=== PATIENT | female | born 1970 | race Caucasian/White ===

== ENCOUNTER 2016-12-21 06:08 | Emergency (ER) | payer BC ==
[2016-12-21 06:14] VITALS: BMI 29.2
[2016-12-21] MEDS ORDERED: ASPIRIN ONE (06:19)
[2016-12-21] MEDS ORDERED: NITROSTAT SL PRN (06:19)
[2016-12-21] MEDS ORDERED: ASPIRIN PO ONE (06:19)
[2016-12-21 06:42] VITALS: BP 169/90
--- NOTE | 2016-12-21 06:47 | RAD ---
HISTORY: Chest pain Study: Chest AP portable Comparison: None Findings: The trachea is midline. The cardiac silhouette is enlarged. No congestive heart failure is noted.. The lungs are clear without focal infiltrate or effusion. The bony thorax is unremarkable. IMPRESSION: 1. Cardiomegaly without congestive heart failure 2. Lungs clear Reported By:
--- NOTE | 2016-12-21 06:48 | DR.GENAD ---
HPI - PCP Primary Care Physician: ERIC - Complaint/Symptoms Chief Complaint Doctors Comments: I agree with statement. Denies a history of cardiac disease. Chief Complaint:: "I JUST FEEL LIKE I HAVE PRESSURE ON MY CHEST, LIKE I MAY BE HAVING A PANIC ATTACK. I HAVE BEEN COUGHING A LOT TOO. I TOOK A BLOOD PRESSURE PILL A LITTLE WHILE AGO. IT WOKE ME UP AROUND 0400 THIS MORNING." Self Treatment fo Chief Complaint: LISINOPRIL. ALLERGY MEDS(CHILDRENS) - Source History Provided: Patient - Mode of Arrival Mode of Arrival: Ambulatory - Timing Onset of Chief Complaint: 12/21/16 PMH - PMH Past Medical History: Yes Past Medical History: Hypertension Past Surgical History: Yes Surgical History: - Family History History of Family Medical Conditions: No - Social History Type of Tobacco Use: Cigarettes Lives Where: Home - infectious screening Have you traveled outside the country in the last 6 months?: No Isolation: Standard ROS - Review of Systems Eyes: No Symptoms Reported ENTM: No Symptoms Reported Respiratoy: No Symptoms Reported Cardiovascular: No Symptoms Reported Gastrointestinal/Abdominal: No Symptoms Reported Genitourinary: No Symptoms Reported Neurological: No Symptoms Reported Musculoskeletal: No Symptoms Reported Integumentary: No Symptoms Reported Hematologic/Lymphatic: No Symptoms Reported Endocrine: No Symptoms Reported Psychiatric: No Symptoms Reported All Other Systems: Reviewed and Negative PE - Vital Signs Vitals: Pulse Rate [Apical] 80 Pulse Rate 102 Respiratory Rate 18 Blood Pressure [Right Arm] 169/90 Blood Pressure 206/116 O2 Sat by Pulse Oximetry 96 - General Limitations: No Limitations General Appearance: Alert, In No Apparent Distress, Appears Intoxicated - Head Head Exam: Normal Inspection, Atraumatic - Eyes Eye exam: Normal Appearance, PERRL, EOMI - ENT ENT Exam: Normal Exam External Ear Exam: Normal External Inspection TM/Canal Exam: Bilateral Normal Nose Exam: Normal Nose Exam Mouth Exam: Normal Inspection Throat Exam: Normal Inspection - Neck Neck Exam: Normal Inspection, Full ROM - Chest Chest Inspection: Normal Inspection - Respiratory Respiratory Exam: Normal Lung Sounds Bilat Respiratory Exam: Bilateral Clear to Auscultation - Cardiovascular Cardiovascular Exam: Regular Rate - Abdominal Exam Abdominal Exam: Normal Inspection Abdominal Tenderness: negative: RUQ, RLQ, LUQ, LLQ, Epigastrium, Suprapubic, Diffuse, Mild, Moderate, Severe, Other - Extremities Extremities Exam: Normal Inspection, Full ROM - Back Back Exam: Normal Inspection, Full ROM - Neurologic Neurological Exam: Alert, Oriented X3, CN II-XII Intact - Psychiatric Psychiatric Exam: Normal Affect - Skin Skin Exam: Warm, Dry, Intact Course - Reevaluation 1st: Improved ROR - Labs Reviewed Result Diagrams: 12/21/16 06:30 12/21/16 06:30 Laboratory: WBC 12.9 X10^3/uL (3.6-10.0) H 12/21/16 06:30 RBC 4.94 X10^6/uL (3.5-5.4) 12/21/16 06:30 Hgb 12.4 g/dL (12.0-16.0) 12/21/16 06:30 Hct 38.0 % (36.0-47.0) 12/21/16 06:30 MCV 76.8 fL (80.0-100.0) L 12/21/16 06:30 MCH 25.0 pg (27.0-34.0) L 12/21/16 06:30 MCHC 32.6 g/dL (33.0-35.0) L 12/21/16 06:30 RDW 17.1 % (11.6-16.5) H 12/21/16 06:30 Plt Count 200 X10^3/uL (150.0-450.0) 12/21/16 06:30 Plt Count Comment Adequate (ADEQUATE) 12/21/16 06:30 MPV 10.4 fL (7.4-11.0) 12/21/16 06:30 Neut % 73.0 % (42.0-75.0) 12/21/16 06:30 Lymph % 19.8 % (21.0-51.0) L 12/21/16 06:30 [place] % 5.2 % (0.0-13.0) 12/21/16 06:30 Eos % 1.5 % (0.9-2.9) 12/21/16 06:30 Baso % 0.5 % (0.2-1.0) 12/21/16 06:30 Neut # 9.4 x10^3/uL (2.2-4.8) H 12/21/16 06:30 Lymph # 2.5 X10^3/uL (1.3-2.9) 12/21/16 06:30 [place] # 0.7 x10^3/uL (0.3-0.8) 12/21/16 06:30 Eos # 0.2 x10^3/uL (0.0-0.2) 12/21/16 06:30 Baso # 0.1 X10^3/uL (0.0-0.1) 12/21/16 06:30 Absolute Nucleated RBC 0.0 /100WBC 12/21/16 06:30 Plt Morphology Comment Normal (NORMAL) 12/21/16 06:30 RBC Morphology Normal (NORMAL) 12/21/16 06:30 INR Target Range - 12/21/16 06:30 INR 0.92 (0.8-1.3) 12/21/16 06:30 Sodium 137 mmol/L (136-145) 12/21/16 06:30 Corrected Sodium TNP 12/21/16 06:30 Potassium 3.6 mmol/L (3.5-5.1) 12/21/16 06:30 Chloride 106 mmol/L (98-107) 12/21/16 06:30 Carbon Dioxide 22.8 mmol/L (21-32) 12/21/16 06:30 BUN 11 mg/dL (7-18) 12/21/16 06:30 Creatinine 1.01 mg/dL (0.55-1.02) 12/21/16 06:30 Est GFR (MDRD) Af Amer > 60 (>60) 12/21/16 06:30 Est GFR (MDRD) Non-Af > 60 (>60) 12/21/16 06:30 Glucose 98 mg/dL (65-99) 12/21/16 06:30 Calcium 8.3 mg/dL (8.5-10.1) L 12/21/16 06:30 Corrected Calcium 9.0 mg/dL (8.5-10.1) 12/21/16 06:30 Phosphorus 2.8 mg/dL (2.6-4.7) 12/21/16 06:30 Magnesium 1.7 mg/dL (1.7-2.9) 12/21/16 06:30 Total Bilirubin 0.30 mg/dL (0.2-1.0) 12/21/16 06:30 AST 16 Units/L (15-37) 12/21/16 06:30 ALT 16 Units/L (12-78) 12/21/16 06:30 Alkaline Phosphatase 79 Units/L (46-116) 12/21/16 06:30 Creatine Kinase 112 Units/L (26-192) 12/21/16 06:30 CK-MB (CK-2) 1.3 ng/mL (0-4.0) 12/21/16 06:30 CK/CKMB % Calc 1.2 % (<4) 12/21/16 06:30 Troponin I 0.02 ng/mL (0-1.5) 12/21/16 06:30 Total Protein 7.5 g/dL (6.4-8.2) 12/21/16 06:30 Albumin 3.1 g/dL (3.4-5.0) L 12/21/16 06:30 Globulin 4.4 g/dL (2.5-4.5) 12/21/16 06:30 Albumin/Globulin Ratio 0.7 Ratio (1.1-2.1) L 12/21/16 06:30 - XRAY XRAY Interpreted by: Radiologist (Chest: cardiomegaly without CHF, Lungs clear) - Diagnosis Discharge Problem: Anxiety - Discharge Plan Condition: Stable - Follow ups/Referrals Follow ups/Referrals: Sandra REYES [Primary Care Provider] - 3 days - Instructions
[2016-12-21 06:53] LABS: BASOPHILS # (AUTO) 0.1 X10^3/uL (0.0-0.1); BASOPHILS % (AUTO) 0.5 % (0.2-1.0); EOSINOPHILS # (AUTO) 0.2 x10^3/uL (0.0-0.2); EOSINOPHILS % (AUTO) 1.5 % (0.9-2.9); HEMOGLOBIN 12.4 g/dL (12.0-16.0); LYMPHOCYTES # (AUTO) 2.5 X10^3/uL (1.3-2.9); LYMPHOCYTES % (AUTO) 19.8 % (21.0-51.0); MEAN CORPUSCULAR HGB CONC 32.6 g/dL (33.0-35.0); MEAN CORPUSCULAR VOLUME 76.8 fL (80.0-100.0); MEAN PLATELET VOLUME 10.4 fL (7.4-11.0); MONOCYTES # (AUTO) 0.7 x10^3/uL (0.3-0.8); MONOCYTES % (AUTO) 5.2 % (0.0-13.0); NEUTROPHILS # (AUTO) 9.4 x10^3/uL (2.2-4.8); PLATELET COUNT 200 X10^3/uL (150.0-450.0); RED BLOOD COUNT 4.94 X10^6/uL (3.5-5.4); RED CELL DISTRIBUTION WIDTH 17.1 % (11.6-16.5); WHITE BLOOD COUNT 12.9 X10^3/uL (3.6-10.0)
[2016-12-21 07:19] LABS: PLATELET MORPHOLOGY COMMENT NORMAL (NORMAL)
[2016-12-21 07:20] LABS: ALANINE AMINOTRANSFERASE 16 Units/L (12-78); ALBUMIN 3.1 g/dL (3.4-5.0); ALKALINE PHOSPHATASE 79 Units/L (46-116); ASPARTATE AMINO TRANSFERASE 16 Units/L (15-37); BLOOD UREA NITROGEN 11 mg/dL (7-18); CALCIUM 8.3 mg/dL (8.5-10.1); CARBON DIOXIDE 22.8 mmol/L (21-32); CHLORIDE 106 mmol/L (98-107); CKMB % 1.2 % (<4); CREATINE KINASE 112 Units/L (26-192); CREATINE KINASE MB 1.3 ng/mL (0-4.0); CREATININE 1.01 mg/dL (0.55-1.02); MAGNESIUM 1.7 mg/dL (1.7-2.9); PHOSPHORUS 2.8 mg/dL (2.6-4.7); SODIUM 137 mmol/L (136-145); TOTAL PROTEIN 7.5 g/dL (6.4-8.2); TROPONIN I 0.02 ng/mL (0-1.5); eGFR BLACK RACES > 60 (>60); eGFR NON BLACK RACES > 60 (>60)
== END 2016-12-21 08:38 | disposition home or self-care (01) ==
LOC: ER 06:08
DX: F41.8 Other specified anxiety disorders (principal)
CPT/HCPCS: 36415; 71010; 80053; 82550; 82553; 83735; 84100; 84484; 85025; 85610; 93005; 93010; 96365; 99283; A4222

== ENCOUNTER 2017-02-11 12:40 | Emergency (ER) | payer BC ==
[2017-02-11 12:51] VITALS: BMI 28.2
[2017-02-11] MEDS ORDERED: CATAPRES TAB 0.2 MG PO ONE (13:18)
[2017-02-11] MEDS ORDERED: ZESTRIL TAB 10 MG PO ONE (13:19)
[2017-02-11] MEDS ORDERED: CATAPRES TAB 0.2 MG ONE (13:21)
--- NOTE | 2017-02-11 13:21 | DR.GENAD ---
HPI - PCP Primary Care Physician: Vanesa - HPI Comment HPI Comment: Possible elevated BP - Complaint/Symptoms Chief Complaint:: "I ran out of my blood pressure medicine Sunday. I was trying to make it till Sunday but I just feel like I'm having a panic attack. I know it has to be really high." - Nurses notes reviewed Nurses Notes Review: Yes - Source History Provided: Patient - Mode of Arrival Mode of Arrival: Ambulatory - Timing Onset of Chief Complaint: 02/09/17 - Modifying Factors Worsens:: none Improves:: none - Associated Signs and Symptoms Associated Signs and Symptoms: none PMH - PMH Past Medical History: Yes Past Medical History: Hypertension Past Surgical History: Yes Surgical History: - Family History History of Family Medical Conditions: Yes Family Medical History: Diabetes Mellitus, Hypertension - Social History Does patient currently use any type of tobacco product: Yes Have you used tobacco products in the last 12 months: Yes Type of Tobacco Use: Cigarettes Does any household member use tobacco: No Alcohol Use: Occasionally Do you use any recreational Drugs:: No Lives With: Family Lives Where: Home - infectious screening In the last 2 months have you had wt loss of >10#?: NO Have you had fever, night sweats or hemotysis?: No Have you traveled outside the country in the last 6 months?: No Isolation: Standard ROS - Review of Systems Constitutional: No Symptoms Reported Eyes: No Symptoms Reported ENTM: No Symptoms Reported Respiratoy: No Symptoms Reported Cardiovascular: No Symptoms Reported Gastrointestinal/Abdominal: No Symptoms Reported Genitourinary: No Symptoms Reported Neurological: No Symptoms Reported Musculoskeletal: No Symptoms Reported Integumentary: No Symptoms Reported Hematologic/Lymphatic: No Symptoms Reported Endocrine: No Symptoms Reported Psychiatric: No Symptoms Reported All Other Systems: Reviewed and Negative PE - Vital Signs Vitals: Temperature 98.5 F Pulse Rate 109 Respiratory Rate 18 Blood Pressure [Left Arm] 160/83 Blood Pressure [Right Arm] 169/90 Blood Pressure 216/125 O2 Sat by Pulse Oximetry 98 - General Limitations: No Limitations General Appearance: Alert, In No Apparent Distress - Head Head Exam: Normal Inspection - Eyes Eye exam: Normal Appearance - ENT ENT Exam: Normal Exam - Neck Neck Exam: Normal Inspection - Chest Chest Inspection: Normal Inspection - Respiratory Respiratory Exam: Normal Lung Sounds Bilat - Cardiovascular Cardiovascular Exam: Regular Rate, Normal Rhythm - Abdominal Exam Abdominal Exam: Normal Inspection, Normal Bowel Sounds, Soft - Extremities Extremities Exam: Normal Inspection, Full ROM - Back Back Exam: Normal Inspection - Neurologic Neurological Exam: Alert, Oriented X3, CN II-XII Intact - Psychiatric Psychiatric Exam: Normal Affect, Normal Mood - Skin Skin Exam: Warm, Dry, Intact, Normal Color Course - Reevaluation 1st: Improved (Repeat BP was 160/80) - Education/Counseling Education/Counseling: Patient, Family Educated On: Treatment, Diagnosis, Needs for Follow Up - Diagnosis Discharge Problem: HTN (hypertension) - Discharge Plan Disposition: 01 HOME, SELF-CARE - Follow ups/Referrals Follow ups/Referrals: Sandra REYES [Primary Care Provider] - 3 days - Instructions
[2017-02-11 14:36] VITALS: BP 128/68
== END 2017-02-11 14:43 | disposition home or self-care (01) ==
LOC: ER 12:49
DX: I10 Essential (primary) hypertension (principal)
CPT/HCPCS: 99282

== ENCOUNTER 2020-10-04 08:35 | Observation (INO) ==
[2020-10-04 08:57] VITALS: BMI 29.7
[2020-10-04] MEDS ORDERED: NITROSTAT SL PRN (09:31)
--- NOTE | 2020-10-04 09:35 | DR.GENAD ---
HPI Time Seen Time Seen by Provider: 10/04/20 09:22 PCP Primary Care Physician: SHAKIRA CLAIRE IN [place] Complaint/Symptoms Chief Complaint Doctors Comments: c/o anxiety and elev BP over the weekend. Chief Complaint:: HAVING PANIC ATTACKS AND FEELS LIKE HER BP IN GOING UP. HAS BEEN A BAD WEEKEND AND FEELS LIKE SOMETHING IS GOING TO HAPPEN. DOES EXPERIENCE CHEST TIGHTNESS WHEN PANIC SETS IN Self Treatment fo Chief Complaint: TAKES XANAX AT NIGHT ORDERED BY , COVID-19 Coronavirus risk:travel/contact w/high risk person: No Has patient experienced Coronavirus symptoms: No Nurses notes reviewed Nurses Notes Review: Yes Source History Provided: Patient Mode of Arrival Mode of Arrival: Ambulatory Timing Onset of Chief Complaint: 10/01/20 PMH PMH Past Medical History: Yes Past Medical History: Anxiety and Hypertension Past Surgical History: Yes Surgical History: Family History History of Family Medical Conditions: Yes Family Medical History: Diabetes Mellitus and Hypertension Social History Alcohol Use: None Do you use any recreational Drugs:: No Lives With: Alone Lives Where: Home Travel Risk Coronavirus risk:travel/contact w/high risk person: No Has patient experienced Coronavirus symptoms: No Infectious screening In the last 2 months have you had wt loss of >10#?: NO Have you had fever, night sweats or hemotysis?: No Have you traveled outside the country in the last 6 months?: No Isolation: Standard ROS Review of Systems Constitutional: See HPI Eyes: No Symptoms Reported ENTM: No Symptoms Reported Respiratoy: See HPI Cardiovascular: See HPI Gastrointestinal/Abdominal: No Symptoms Reported Genitourinary: No Symptoms Reported Neurological: See HPI Musculoskeletal: No Symptoms Reported Integumentary: No Symptoms Reported Hematologic/Lymphatic: No Symptoms Reported Endocrine: No Symptoms Reported All Other Systems: Reviewed and Negative PE Vital Signs Vitals: Temperature 99.9 F Pulse Rate 116 Respiratory Rate 24 Blood Pressure [Left Arm] 156/102 Blood Pressure 181/120 O2 Sat by Pulse Oximetry 88 General General Appearance: Alert and Anxious Head Head Exam: Normal Inspection, Atraumatic and Normocephalic Eyes Eye exam: Normal Appearance, PERRL and EOMI ENT ENT Exam: Normal Exam and Normal Oropharynx Mouth Exam: Normal Inspection Neck Neck Exam: Normal Inspection and Full ROM Respiratory Respiratory Exam: Normal Lung Sounds Bilat; negative Accessory Muscle Use and Chest Wall Tenderness Cardiovascular Cardiovascular Exam: Regular Rate, Normal Rhythm and Normal Heart Sounds Abdominal Exam Abdominal Exam: Normal Inspection and Normal Bowel Sounds Extremities Extremities Exam: Normal Inspection and Full ROM Back Back Exam: Normal Inspection and Full ROM Neurologic Neurological Exam: Alert, Oriented X3 and Reflexes Normal Skin Skin Exam: Warm, Dry and Intact ROR Labs Reviewed Laboratory Results Reviewed?: Yes Result Diagrams: 10/04/20 09:36 10/04/20 09:36 Laboratory: WBC 14.7 X10^3/uL (3.6-10.0) H 10/04/20 09:36 RBC 4.77 X10^6/uL (3.5-5.4) 10/04/20 09:36 Hgb 13.7 g/dL (12.0-16.0) 10/04/20 09:36 Hct 40.7 % (36.0-47.0) 10/04/20 09:36 MCV 85.4 fL (80.0-100.0) 10/04/20 09:36 MCH 28.7 pg (27.0-34.0) 10/04/20 09:36 MCHC 33.6 g/dL (33.0-35.0) 10/04/20 09:36 RDW 15.0 % (11.6-16.5) 10/04/20 09:36 Plt Count 168 X10^3/uL (150.0-450.0) 10/04/20 09:36 MPV 11.2 fL (7.4-11.0) H 10/04/20 09:36 Neut % (Auto) 79.5 % (42.0-75.0) H 10/04/20 09:36 Lymph % (Auto) 14.0 % (21.0-51.0) L 10/04/20 09:36 [place] % (Auto) 5.7 % (0.0-13.0) 10/04/20 09:36 Eos % (Auto) 0.5 % (0.9-2.9) L 10/04/20 09:36 Baso % (Auto) 0.3 % (0.2-1.0) 10/04/20 09:36 Neut # (Auto) 11.7 x10^3/uL (2.2-4.8) H 10/04/20 09:36 Lymph # (Auto) 2.1 X10^3/uL (1.3-2.9) 10/04/20 09:36 [place] # (Auto) 0.8 x10^3/uL (0.3-0.8) 10/04/20 09:36 Eos # (Auto) 0.1 x10^3/uL (0.0-0.2) 10/04/20 09:36 Baso # (Auto) 0.0 X10^3/uL (0.0-0.1) 10/04/20 09:36 Absolute Nucleated RBC 0.1 /100WBC 10/04/20 09:36 Sodium 140 mmol/L (136-145) 10/04/20 09:36 Corrected Sodium TNP 10/04/20 09:36 Potassium 4.9 mmol/L (3.5-5.1) 10/04/20 09:36 Chloride 104 mmol/L (98-107) 10/04/20 09:36 Carbon Dioxide 26.8 mmol/L (21-32) 10/04/20 09:36 BUN 8 mg/dL (7-18) 10/04/20 09:36 Creatinine 1.10 mg/dL (0.55-1.02) H 10/04/20 09:36 Est GFR (MDRD) Af Amer > 60 (>60) 10/04/20 09:36 Est GFR (MDRD) Non-Af 56 (>60) L 10/04/20 09:36 Glucose 104 mg/dL (65-99) H 10/04/20 09:36 Calcium 10.1 mg/dL (8.5-10.1) 10/04/20 09:36 Corrected Calcium 10.7 mg/dL (8.5-10.1) H 10/04/20 09:36 Total Bilirubin 0.50 mg/dL (0.2-1.0) 10/04/20 09:36 AST 30 Units/L (15-37) 10/04/20 09:36 ALT 27 Units/L (12-78) 10/04/20 09:36 Alkaline Phosphatase 95 Units/L (46-116) 10/04/20 09:36 Troponin I < 0.02 ng/mL (0-1.5) 10/04/20 09:36 Total Protein 7.5 g/dL (6.4-8.2) 10/04/20 09:36 Albumin 3.3 g/dL (3.4-5.0) L 10/04/20 09:36 Globulin 4.2 g/dL (2.5-4.5) 10/04/20 09:36 Albumin/Globulin Ratio 0.8 Ratio (1.1-2.1) L 10/04/20 09:36 Opioid Opioid Risk Tool Age (Remi box if 16-45): No History of Preadolescent Sexual Abuse: No Total: 0 Total Score Risk Category: Low Risk Copyright: Ismael MORALES predicting aberrant behaviors Diagnosis Discharge Problem: Anxiety, HTN (hypertension)
[2020-10-04 09:49] LABS: BASOPHILS % (AUTO) 0.3 % (0.2-1.0); EOSINOPHILS # (AUTO) 0.1 x10^3/uL (0.0-0.2); EOSINOPHILS % (AUTO) 0.5 % (0.9-2.9); HEMATOCRIT 40.7 % (36.0-47.0); HEMOGLOBIN 13.7 g/dL (12.0-16.0); LYMPHOCYTES # (AUTO) 2.1 X10^3/uL (1.3-2.9); MEAN CORPUSCULAR HEMOGLOBIN 28.7 pg (27.0-34.0); MEAN CORPUSCULAR HGB CONC 33.6 g/dL (33.0-35.0); MEAN CORPUSCULAR VOLUME 85.4 fL (80.0-100.0); MEAN PLATELET VOLUME 11.2 fL (7.4-11.0); MONOCYTES # (AUTO) 0.8 x10^3/uL (0.3-0.8); MONOCYTES % (AUTO) 5.7 % (0.0-13.0); NEUTROPHILS # (AUTO) 11.7 x10^3/uL (2.2-4.8); NEUTROPHILS % (AUTO) 79.5 % (42.0-75.0); PLATELET COUNT 168 X10^3/uL (150.0-450.0); RED BLOOD COUNT 4.77 X10^6/uL (3.5-5.4); WHITE BLOOD COUNT 14.7 X10^3/uL (3.6-10.0)
[2020-10-04] MEDS ORDERED: NITROSTAT ONE (09:54)
[2020-10-04] MEDS ORDERED: ATIVAN INJ 2 MG VIAL ONE (09:55)
[2020-10-04] MEDS: ATIVAN INJ 2 MG VIAL IVP PRN ×2 (10:07→21:00)
[2020-10-04 10:14] LABS: ALANINE AMINOTRANSFERASE 27 Units/L (12-78); ALBUMIN 3.3 g/dL (3.4-5.0); ALKALINE PHOSPHATASE 95 Units/L (46-116); ASPARTATE AMINO TRANSFERASE 30 Units/L (15-37); BLOOD UREA NITROGEN 8 mg/dL (7-18); CALCIUM 10.1 mg/dL (8.5-10.1); CARBON DIOXIDE 26.8 mmol/L (21-32); CHLORIDE 104 mmol/L (98-107); COR CA(FOR HYPOALB) 10.7 mg/dL (8.5-10.1); SODIUM 140 mmol/L (136-145); TOTAL PROTEIN 7.5 g/dL (6.4-8.2); TROPONIN I < 0.02 ng/mL (0-1.5); eGFR NON BLACK RACES 56 (>60)
[2020-10-04] MEDS ORDERED: CARDIZEM INJ 50 MG VIAL IVP ONE (11:33)
--- NOTE | 2020-10-04 13:10 | RAD ---
CHEST, PA/LAT ADULTHISTORY:SOBStudy: PA and lateral views of the chest.Comparison:NoneFindings:Cardiomegaly and pulmonary vascular congestion. No focal consolidations, pleural effusions or pneumothorax. Osseous structures demonstrate no acute abnormality.IMPRESSION:1. Cardiomegaly and pulmonary vascular congestion.Electronically signed by: KEE SRIVASTAVA (Oct 04, 2020 13:07:59)
[2020-10-04] MEDS ORDERED: NS 100 ML IV 100 ML ONE (13:30)
--- NOTE | 2020-10-04 14:55 | CT ---
PROCEDURE: CTA Chest .HISTORY: Short of breath and elevated D-dimer.TECHNIQUE: Axial images were performed through the chest with the administration of IV contrast with multiplanar reformations . 3D and MIPS reconstructions were performed and reviewed. Dose reduction techniques including Automated Exposure Control (AEC) and adjustment of mA and kV were utilized .COMPARISON: None .TECHNICAL QUALITY: Satisfactory .FINDINGS:Mild atherosclerosis thoracic aorta with no aneurysm. Aorta is unopacified with contrast.No evidence of pulmonary embolus.Mediastinum and hilar regions show no masses or lymphadenopathy.Heart size upper limits of normal with no pericardial fluid.Small bilateral pleural effusions no pulmonary consolidation, masses, or pneumothoraxVisualized upper abdomen shows no significant abnormality.No acute bony abnormality.IMPRESSION:1. No pulmonary embolus.2. No pulmonary consolidation.3. Heart size upper limits of normal.4. Small bilateral pleural effusions.Electronically signed by: Jay Vogel (Oct 04, 2020 14:53:26)
[2020-10-04 16:13] LABS: CKMB % 2.1 % (<4); CREATINE KINASE 84 Units/L (26-192); CREATINE KINASE MB 1.8 ng/mL (0-4.0); TROPONIN I < 0.02 ng/mL (0-1.5)
[2020-10-04 22:03] LABS: CKMB % 1.8 % (<4); CREATINE KINASE 71 Units/L (26-192); CREATINE KINASE MB 1.3 ng/mL (0-4.0); TROPONIN I < 0.02 ng/mL (0-1.5)
[2020-10-05] MEDS ORDERED: TOPROL XL PO STA (00:19)
[2020-10-05 02:21] LABS: BILIRUBIN,URINE NEGATIVE (NEGATIVE); BLOOD/HEMOGLOBIN,URINE 1+ (NEGATIVE); GLUCOSE, URINE NEGATIVE (NEGATIVE); KETONES,URINE NEGATIVE (NEGATIVE); LEUKOCYTE ESTERASE ,URINE NEGATIVE (NEGATIVE); NITRITES,URINE NEGATIVE (NEGATIVE); PROTEIN,URINE NEGATIVE (NEGATIVE); UROBILINOGEN,URINE NORMAL (NORMAL)
[2020-10-05 02:32] LABS: APPEARANCE,URINE CLEAR (CLEAR); BACTERIA,URINE TRACE /HPF (NEGATIVE); COLOR,URINE YELLOW (YELLOW); RBC,URINE 0-2 /HPF (0-3); SQUAMOUS EPITHELIAL CELL,UR RARE /HPF (NEGATIVE)
[2020-10-05 04:56] LABS: BASOPHILS % (AUTO) 0.4 % (0.2-1.0); EOSINOPHILS # (AUTO) 0.1 x10^3/uL (0.0-0.2); EOSINOPHILS % (AUTO) 1.6 % (0.9-2.9); HEMATOCRIT 36.2 % (36.0-47.0); HEMOGLOBIN 12.2 g/dL (12.0-16.0); MEAN CORPUSCULAR HEMOGLOBIN 28.8 pg (27.0-34.0); MEAN CORPUSCULAR HGB CONC 33.8 g/dL (33.0-35.0); MEAN CORPUSCULAR VOLUME 85.1 fL (80.0-100.0); MEAN PLATELET VOLUME 11.7 fL (7.4-11.0); MONOCYTES # (AUTO) 0.5 x10^3/uL (0.3-0.8); MONOCYTES % (AUTO) 6.4 % (0.0-13.0); NEUTROPHILS # (AUTO) 5.7 x10^3/uL (2.2-4.8); NEUTROPHILS % (AUTO) 67.6 % (42.0-75.0); PLATELET COUNT 159 X10^3/uL (150.0-450.0); RED BLOOD COUNT 4.25 X10^6/uL (3.5-5.4); RED CELL DISTRIBUTION WIDTH 15.3 % (11.6-16.5); WHITE BLOOD COUNT 8.4 X10^3/uL (3.6-10.0)
[2020-10-05 05:50] LABS: ALANINE AMINOTRANSFERASE 19 Units/L (12-78); ALBUMIN 2.5 g/dL (3.4-5.0); ALKALINE PHOSPHATASE 80 Units/L (46-116); ASPARTATE AMINO TRANSFERASE 26 Units/L (15-37); BLOOD UREA NITROGEN 12 mg/dL (7-18); CALCIUM 8.7 mg/dL (8.5-10.1); CHLORIDE 106 mmol/L (98-107); COR CA(FOR HYPOALB) 9.9 mg/dL (8.5-10.1); CREATINE KINASE 129 Units/L (26-192); CREATININE 1.12 mg/dL (0.55-1.02); SODIUM 142 mmol/L (136-145); TOTAL PROTEIN 6.4 g/dL (6.4-8.2); eGFR NON BLACK RACES 55 (>60)
[2020-10-05 05:52] LABS: CREATINE KINASE MB 11.6 ng/mL (0-4.0)
[2020-10-05] MEDS ORDERED: ASPIRIN PO STA (06:00)
[2020-10-05] MEDS ORDERED: ASPIRIN ONE (06:04)
[2020-10-05] MEDS ORDERED: TOPROL XL PO SCH (09:00)
[2020-10-05] MEDS ORDERED: ZESTRIL TAB 20 MG PO SCH (09:00)
[2020-10-05 09:33] VITALS: BP 137/88
[2020-10-05] MEDS ORDERED: ZESTRIL TAB 20 MG ONE (11:04)
== END 2020-10-05 12:20 | disposition short-term general hospital (02) ==
LOC: MED/SURG 08:35 → ER 08:35 → MED/SURG 16:14
PROVIDERS: ADMIT Obstetrics & Gynecology Obstetrics; ATTEND Obstetrics & Gynecology Obstetrics
DX: R79.1 Abnormal coagulation profile; F41.0 Panic disorder [episodic paroxysmal anxiety]; I11.9 Hypertensive heart disease without heart failure; I21.4 Non-ST elevation (NSTEMI) myocardial infarction; R94.31 Abnormal electrocardiogram [ECG] [EKG]; R06.02 Shortness of breath; Z20.822 Contact with and (suspected) exposure to COVID-19; I16.0 Hypertensive urgency